=== PATIENT | female | born 1980 | race African-American/Black ===

== ENCOUNTER 2017-10-06 15:39 | Emergency (ER) | payer OTHER ==
[2017-10-06 15:51] VITALS: BP 103/65; PULSE 109; RESP 18; TEMP 98.3
--- NOTE | 2017-10-06 16:42 | ED ---
General Adult HPI - General Chief complaint: Skin/Abscess/Foreign Body Stated complaint: Legs/Feet Infection Time Seen by Provider: 10/06/17 16:03 Source: patient, RN notes reviewed Mode of arrival: ambulatory Limitations: no limitations - History of Present Illness Initial comments: Patient 36-year-old female presented to the emergency room today with a chief complaint of infection to her lower extremities. She does admit to a history of eczema. She states that she has chronic wounds. She states that she noticed that she has some drainage coming from one of the sites 3 days ago. She states she was placed on Keflex just 2 days ago. She is currently at [place] for alcohol abuse. Patient states she's been clean for almost 30 days now. She does admit to a history of MRSA once in the past of similar wound on her foot. She states there has been some yellow drainage coming from these wounds. She has 2 spots to both the left and right lower legs. Patient denies any other complaints or symptoms. Patient denies any recent fever, chills , shortness of breath, chest pain, back pain, abdominal pain, nausea or vomiting , numbness or tingling, dysuria or hematuria, constipation or diarrhea, headaches or visual changes, or any other complaints. - Related Data Previous Rx's Medication Instructions Recorded Mupirocin 2% Oint [Bactroban Oint] 1 applic TOPICAL TID #1 gm 10/06/17 Sulfamethox-Tmp 800-160Mg [Bactrim 1 tab PO Q12HR #20 tab 10/06/17 DS 800-160 mg] Allergies Allergy/AdvReac Type Severity Reaction Status Date / Time Sulfa (Sulfonamide Allergy Rash/Hives Verified 10/06/17 15:46 Antibiotics) Review of Systems ROS Statement: Those systems with pertinent positive or pertinent negative responses have been documented in the HPI. ROS Other: All systems not noted in ROS Statement are negative. Past Medical History Past Medical History: Asthma, Hypertension Additional Past Medical History / Comment(s): alcohol abuse History of Any Multi-Drug Resistant Organisms: MRSA Date of last positivie culture/infection: 2009 Past Surgical History: No Surgical Hx Reported Past Psychological History: No Psychological Hx Reported Smoking Status: Current every day smoker Past Alcohol Use History: Abuse Past Drug Use History: None Reported General Exam - General Exam Comments Initial Comments: General: The patient is awake and alert, in no distress, and does not appear acutely ill. Eye: Pupils are equal, round and reactive to light, extra-ocular movements are intact. No nystagmus. There is normal conjunctiva bilaterally. No signs of icterus. Ears, nose, mouth and throat: There are moist mucous membranes and no oral lesions. Neck: The neck is supple, there is no tenderness or JVD. Cardiovascular: There is a regular rate and rhythm. No murmur, rub or gallop is appreciated. Respiratory: Lungs are clear to auscultation, respirations are non-labored, breath sounds are equal. No wheezes, stridor, rales, or rhonchi. Musculoskeletal: Normal ROM, no tenderness. Strength 5/5. Sensation intact. Pulses equal bilaterally 2+. Neurological: A&O x 3. CN II-XII intact, There are no obvious motor or sensory deficits. Coordination appears grossly intact. Speech is normal. Skin: Patient does have superficial skin breakdown of lesions to both the left and right legs. Largest area is to the medial aspect of the left calf measures approximately 4 cm across. Some yellow drainage. Few small spots seen to both the ankles bilaterally and right. Psychiatric: Cooperative, appropriate mood & affect, normal judgment. Limitations: no limitations Course Vital Signs 10/06/17 15:46 Temperature 98.3 F Pulse Rate 109 H Respiratory 18 Rate Blood Pressure 103/65 O2 Sat by Pulse 99 Oximetry Medical Decision Making - Medical Decision Making Options were discussed with the patient about further outpatient treatment. Patient does admit to history of MRSA. Ii was offered to use clindamycin. She states that last does not work for her. Patient states that shortly she's had Bactrim in the past and would like to try this. She states that reaction that she had once in the past with hives. She states there was no airway involvement. She denies any other complaints. Patient will also be given prescription for Bactroban. She denies return if symptoms increase or worsen. Disposition Clinical Impression: Skin infection Disposition: HOME SELF-CARE Condition: Good Instructions: Cellulitis (ED) Additional Instructions: Please use medication as discussed. Please follow-up with family doctor in the next 2 days of symptoms have not improved. Please return to emergency room if the symptoms increase or worsen or for any other concerns. Prescriptions: Mupirocin 2% Oint [Bactroban Oint] 1 applic TOPICAL TID #1 gm Sulfamethox-Tmp 800-160Mg [Bactrim DS 800-160 mg] 1 tab PO Q12HR #20 tab Is patient prescribed a controlled substance at d/c from ED?: No Referrals: None,Stated [Primary Care Provider] - 1-2 days Time of Disposition: 16:45
[2017-10-06] MEDS ORDERED: SULFAMETH-TMP DS STARTER PACK 2 TAB BTL PO STA (16:55)
== END 2017-10-06 17:05 | disposition home or self-care (01) ==
LOC: EC 15:39
DX: L08.9 Local infection of the skin and subcutaneous tissue, unspecified (principal); F17.200 Nicotine dependence, unspecified, uncomplicated; Z86.14 Personal history of Methicillin resistant Staphylococcus aureus infection; Z88.2 Allergy status to sulfonamides
CPT/HCPCS: 87070; 87077; 87186; 87205; 99283